=== PATIENT | female | born 1960 | race Caucasian/White ===

== ENCOUNTER 2020-07-29 17:46 | Inpatient (IN) ==
--- NOTE | 2020-07-29 18:36 | RAD ---
HISTORYPneumoniaSTUDYChest PA and lateral viewsCOMPARISONNoneFINDINGSNormal heart size. The lungs are clear of active-appearing disease. There is slightly prominent interstitial pattern in the left midlung without definite segmental or lobar consolidation. No pleural fluid or adenopathy seen.IMPRESSIONNo convincing evidence for acute or significant chronic abnormality. Follow-up suggested to evaluate possible developing infiltrate in the left midlung, see above.Electronically signed by: RADHA BALLARD (Jul 29, 2020 18:33:52)
[2020-07-29 18:59] LABS: BASOPHILS % (AUTO) 0.2 % (0.2-1.0); EOSINOPHILS % (AUTO) 0.1 % (0.9-2.9); HEMATOCRIT 42.7 % (36.0-47.0); HEMOGLOBIN 14.4 g/dL (12.0-16.0); LYMPHOCYTES # (AUTO) 1.5 X10^3/uL (1.3-2.9); LYMPHOCYTES % (AUTO) 15.4 % (21.0-51.0); MEAN CORPUSCULAR HEMOGLOBIN 27.8 pg (27.0-34.0); MEAN CORPUSCULAR HGB CONC 33.6 g/dL (33.0-35.0); MEAN CORPUSCULAR VOLUME 82.6 fL (80.0-100.0); MEAN PLATELET VOLUME 10.7 fL (7.4-11.0); MONOCYTES # (AUTO) 0.8 x10^3/uL (0.3-0.8); MONOCYTES % (AUTO) 7.7 % (0.0-13.0); NEUTROPHILS # (AUTO) 7.7 x10^3/uL (2.2-4.8); NEUTROPHILS % (AUTO) 76.6 % (42.0-75.0); PLATELET COUNT 276 X10^3/uL (150.0-450.0); RED BLOOD COUNT 5.17 X10^6/uL (3.5-5.4)
[2020-07-29] MEDS ORDERED: REMDESIVIR 200 MG in NS 250 ML IV 250 ML IV SCH (19:00)
[2020-07-29 19:03] LABS: ALANINE AMINOTRANSFERASE 23 Units/L (12-78); ALBUMIN 3.4 g/dL (3.4-5.0); ALKALINE PHOSPHATASE 112 Units/L (46-116); ASPARTATE AMINO TRANSFERASE 17 Units/L (15-37); BLOOD UREA NITROGEN 9 mg/dL (7-18); CALCIUM 9.2 mg/dL (8.5-10.1); CARBON DIOXIDE 32.7 mmol/L (21-32); CHLORIDE 99 mmol/L (98-107); CREATININE 1.06 mg/dL (0.55-1.02); SODIUM 140 mmol/L (136-145); TOTAL PROTEIN 7.9 g/dL (6.4-8.2); eGFR NON BLACK RACES 56 (>60)
[2020-07-29] MEDS ORDERED: NS 1/2 1000 ML IV 1,000 ML IV ONE (20:05)
[2020-07-29] MEDS ORDERED: REMDESIVIR IV ONE (20:38)
[2020-07-29] MEDS ORDERED: NS 250 ML IV 250 ML IV ONE (20:39)
[2020-07-29] MEDS ORDERED: PULMICORT NEB TX 0.5 MG NEB SCH (21:00)
[2020-07-29] MEDS: SOLU-Medrol 40 MG VIAL IVP SCH ×2 (21:08→21:09)
[2020-07-29] MEDS: ROBITUSSIN DM PO SCH ×2 (21:08)
[2020-07-29] MEDS: NS 1/2 1000 ML IV 1,000 ML IV SCH (21:08)
[2020-07-29] MEDS ORDERED: DUONEB 0.5 MG/3 MG (3 mL) NEB SCH (22:00)
[2020-07-29 22:28] LABS: ABG BASE EXCESS 5.1 mmol/L (-2.0-2.0); ABG HCO3 27.4 mmol/L (22-26)
[2020-07-29] MEDS: PULMICORT NEB TX 0.5 MG NEB SCH (22:29)
[2020-07-29] MEDS: DUONEB 0.5 MG/3 MG (3 mL) NEB SCH (22:29)
[2020-07-30] MEDS: LEVAQUIN PREMIX IV 750 MG 750 MG/150 ML BAG IV SCH (03:08)
[2020-07-30] MEDS: FORTAZ or TAZICEF VIAL INJ 1 G in NS 100 ML IV + SPIKE MINIBAG* 100 ML IV SCH ×3 (04:00→19:38)
[2020-07-30] MEDS: SOLU-Medrol 40 MG VIAL IVP SCH ×3 (05:08→21:39)
[2020-07-30 05:27] LABS: BASOPHILS % (AUTO) 0 % (0.2-1.0); HEMATOCRIT 40.6 % (36.0-47.0); HEMOGLOBIN 13.7 g/dL (12.0-16.0); LYMPHOCYTES # (AUTO) 0.6 X10^3/uL (1.3-2.9); LYMPHOCYTES % (AUTO) 6.5 % (21.0-51.0); MEAN CORPUSCULAR HEMOGLOBIN 27.9 pg (27.0-34.0); MEAN CORPUSCULAR HGB CONC 33.7 g/dL (33.0-35.0); MEAN CORPUSCULAR VOLUME 82.6 fL (80.0-100.0); MEAN PLATELET VOLUME 10.9 fL (7.4-11.0); MONOCYTES # (AUTO) 0.1 x10^3/uL (0.3-0.8); MONOCYTES % (AUTO) 1.4 % (0.0-13.0); NEUTROPHILS # (AUTO) 7.8 x10^3/uL (2.2-4.8); NEUTROPHILS % (AUTO) 92.1 % (42.0-75.0); PLATELET COUNT 255 X10^3/uL (150.0-450.0); RED BLOOD COUNT 4.92 X10^6/uL (3.5-5.4); WHITE BLOOD COUNT 8.5 X10^3/uL (3.6-10.0)
[2020-07-30 05:28] LABS: ALANINE AMINOTRANSFERASE 25 Units/L (12-78); ALBUMIN 2.9 g/dL (3.4-5.0); ALKALINE PHOSPHATASE 110 Units/L (46-116); ASPARTATE AMINO TRANSFERASE 21 Units/L (15-37); BLOOD UREA NITROGEN 9 mg/dL (7-18); CARBON DIOXIDE 25.8 mmol/L (21-32); CHLORIDE 101 mmol/L (98-107); COR NA(FOR HYPERGLY) 142 mmol/L (136-145); CREATININE 1.07 mg/dL (0.55-1.02); SODIUM 140 mmol/L (136-145); TOTAL PROTEIN 7.3 g/dL (6.4-8.2); eGFR NON BLACK RACES 56 (>60)
[2020-07-30 05:34] LABS: CALCIUM 8.6 mg/dL (8.5-10.1); COR CA(FOR HYPOALB) 9.5 mg/dL (8.5-10.1)
[2020-07-30 05:51] LABS: BAND NEUTROPHILS % 2 % (0-10); PLATELET MORPHOLOGY COMMENT NORMAL (NORMAL)
[2020-07-30 06:07] LABS: ERYTHROCYTE SEDIMENTATION RATE 20 MM/HOUR (0-20)
[2020-07-30] MEDS: DUONEB 0.5 MG/3 MG (3 mL) NEB SCH (06:30)
[2020-07-30] MEDS: PULMICORT NEB TX 0.5 MG NEB SCH ×2 (08:39→20:45)
[2020-07-30] MEDS: ROBITUSSIN DM PO SCH ×4 (09:04→20:29)
[2020-07-30] MEDS: REMDESIVIR 100 MG in NS 250 ML IV 250 ML IV SCH (10:53)
[2020-07-30] MEDS: NS 1/2 1000 ML IV 1,000 ML IV SCH (10:54)
[2020-07-30] MEDS ORDERED: XOPENEX 1.25 MG/3 ML NEBULE NEB ONE (12:36)
[2020-07-30] MEDS: XOPENEX 1.25 MG/3 ML NEBULE NEB SCH ×2 (13:05→20:45)
[2020-07-30] MEDS: TYLENOL 325 MG TAB PO PRN (15:41)
[2020-07-30 19:39] VITALS: BMI 37.4
[2020-07-30] MEDS ORDERED: NS 1/2 1000 ML IV 1,000 ML IV ONE (21:49)
[2020-07-31] MEDS: LEVAQUIN PREMIX IV 750 MG 750 MG/150 ML BAG IV SCH ×2 (01:12→09:45)
[2020-07-31] MEDS: TYLENOL 325 MG TAB PO PRN (02:54)
[2020-07-31] MEDS: FORTAZ or TAZICEF VIAL INJ 1 G in NS 100 ML IV + SPIKE MINIBAG* 100 ML IV SCH ×3 (03:19→20:00)
[2020-07-31] MEDS: NS 1/2 1000 ML IV 1,000 ML IV SCH ×3 (03:57→12:21)
[2020-07-31] MEDS: SOLU-Medrol 40 MG VIAL IVP SCH ×3 (05:07→21:27)
[2020-07-31 05:18] LABS: ABG ALLEN TEST POS; ABG BASE EXCESS 2.5 mmol/L (-2.0-2.0); ABG HCO3 26.3 mmol/L (22-26)
[2020-07-31 05:38] LABS: BASOPHILS % (AUTO) 0 % (0.2-1.0); HEMATOCRIT 39.2 % (36.0-47.0); HEMOGLOBIN 12.9 g/dL (12.0-16.0); LYMPHOCYTES # (AUTO) 0.9 X10^3/uL (1.3-2.9); LYMPHOCYTES % (AUTO) 6.4 % (21.0-51.0); MEAN CORPUSCULAR HEMOGLOBIN 27.2 pg (27.0-34.0); MEAN CORPUSCULAR HGB CONC 32.9 g/dL (33.0-35.0); MEAN CORPUSCULAR VOLUME 82.7 fL (80.0-100.0); MEAN PLATELET VOLUME 10.7 fL (7.4-11.0); MONOCYTES # (AUTO) 0.8 x10^3/uL (0.3-0.8); MONOCYTES % (AUTO) 5.3 % (0.0-13.0); NEUTROPHILS # (AUTO) 12.6 x10^3/uL (2.2-4.8); NEUTROPHILS % (AUTO) 88.3 % (42.0-75.0); PLATELET COUNT 294 X10^3/uL (150.0-450.0); RED BLOOD COUNT 4.74 X10^6/uL (3.5-5.4); RED CELL DISTRIBUTION WIDTH 14.2 % (11.6-16.5); WHITE BLOOD COUNT 14.2 X10^3/uL (3.6-10.0)
[2020-07-31 05:38] LABS: FRACTIONATED INSPIRED OXYGEN 21
[2020-07-31 05:46] LABS: ALANINE AMINOTRANSFERASE 27 Units/L (12-78); ALBUMIN 2.7 g/dL (3.4-5.0); ALKALINE PHOSPHATASE 100 Units/L (46-116); ASPARTATE AMINO TRANSFERASE 25 Units/L (15-37); BLOOD UREA NITROGEN 13 mg/dL (7-18); CALCIUM 8.4 mg/dL (8.5-10.1); CARBON DIOXIDE 26.8 mmol/L (21-32); CHLORIDE 104 mmol/L (98-107); COR CA(FOR HYPOALB) 9.4 mg/dL (8.5-10.1); COR NA(FOR HYPERGLY) 143 mmol/L (136-145); CREATININE 1.04 mg/dL (0.55-1.02); SODIUM 141 mmol/L (136-145); TOTAL PROTEIN 6.6 g/dL (6.4-8.2); eGFR NON BLACK RACES 58 (>60)
[2020-07-31] MEDS ORDERED: Atrovent NEB TX 0.02% ONE (05:48)
[2020-07-31] MEDS: Atrovent NEB TX 0.02% NEB SCH ×3 (05:52→21:29)
[2020-07-31] MEDS ORDERED: K-DUR TAB 20 MEQ PO ONE (06:15)
--- NOTE | 2020-07-31 06:15 | RAD ---
HISTORYShortness of breathSTUDYChest AP [id number]/07/2020FINDINGSThe heart is within normal limits in size. The apollo are normal. The lungs are well inflated and free of acute infiltrates. No pleural effusions are identified. Bony thorax is unremarkable.IMPRESSIONNo significant abnormality identifiedElectronically signed by: LOLITA IBRAHIM (Jul 31, 2020 06:13:31)
[2020-07-31] MEDS: K-DUR TAB 20 MEQ PO PRN (06:21)
[2020-07-31 06:35] LABS: ERYTHROCYTE SEDIMENTATION RATE 18 MM/HOUR (0-20)
[2020-07-31] MEDS: PULMICORT NEB TX 0.5 MG NEB SCH ×2 (08:20→21:29)
[2020-07-31] MEDS: LOVENOX INJ 30 MG SYR SC SCH ×2 (09:46→20:56)
[2020-07-31] MEDS: REMDESIVIR 100 MG in NS 250 ML IV 250 ML IV SCH (09:47)
[2020-07-31] MEDS: ROBITUSSIN DM PO SCH ×4 (09:48→20:42)
--- NOTE | 2020-07-31 10:47 | DR.H&P ---
H&P - History & Physical for Day of: H&P Date: 07/29/20 - Chief Complaint Chief Complaint: COUGH, SOB, HEADACHE, BODY ACHES, FEVER, COVID POSITIVE - History of Present Illness History of Present Illness: IS A 60 YEAR OLD PATIENT OF OURS WHO PRESENTED TO THE HOSPITAL A DIRECT ADMISSION DUE TO COMPLAINTS OF PERSISTENT COUGH, SHORTNESS OF BREATH, HEADACHE, BODY ACHES, AND FEVER. SYMPTOMS STARTED ON 07/24/20. SHE TESTED POSITIVE FOR COVID-19 AND WAS STARTED ON THE Z-PACK, MEDROL DOSEPACK, AND PLAQUENIL REGIMEN. SHE DENIES IMPROVEMENT IN SYMPTOMS DESPITE COMPLIANCE WITH MEDICATIONS. SHE WAS ADMITTED FOR FURTHER EVALUATION AND TR EAMENT OF BRONCHOPNEUMONIA DUE TO COVID-19. ON ARRIVAL TO THE HOSPITAL, VITALS WERE 99.5-76-22-96%RA-164/87. LABS WERE OBTAINED. ABNORMAL LAB VALUES INCLUDE THE FOLLOWING: CARBON DIOXIDE 32.7, CREATININE 1.06, GFR 56, FERRITIN 346, CRP 89.40. ABG REVEALED: PH 7.540, PC02 32.0, P02 66.0, HC03 27.4, 02 ST 95, BASE EXCESS 5.1, FI02 21.0. BLOOD AND SPUTUM CULTURES WERE SET UP. A CHEST XRAY WAS OBTAINED AND REVEALED: Normal heart size. The lungs are clear of active- appearing disease. There is slightly prominent interstitial pattern in the left midlung without definite segmental or lobar consolidation. No pleural fluid or adenopathy seen. SHE WAS STARTED ON 1/2NS AT 75 ML/HR, REMDESIVIR 200MG IV X 1 DOSE THEN 100 MG IV DAILY, LEVAQUIN 750MG IV DAILY, FORTAZ 1G IV Q8H, SOLU- MEDROL 80MG IV Q8H, ATROVENT NEB TX TID, PULMICORT NEBS BID, TUSSIONEX 5ML PO Q12H PRN, LOVENOX 30MG SC BID, ROBITUSSIN 10ML PO QID. OTHERWISE, WE PLAN TO FOLLOW UP WITH AM LABS AND CHEST XRAY AND CONTINUE TO MONITOR. - Past Medical History Past Medical History: Hypertension - Past Surgical History Surgical History: Appendectomy, Hysterectomy, Ortho Surgery, Tonsillectomy - Family History Family Medical History: Diabetes Mellitus, Cancer, Coronary Artery Disease - Social History Does patient currently use any type of tobacco product: No Have you used tobacco products in the last 12 months: No Type of Tobacco Use: None Does any household member use tobacco: No Alcohol Use: None Drug Use: None - Medications Home Medications: oxycodone [From Percocet] Adverse Reaction (Intermediate, Verified 07/29/20 20:31) CONTINUE taking the following medications estradiol 1 mg PO DAILY 07/29/20 [History] triamterene-hydrochlorothiazid 1 cap PO DAILY 07/29/20 [History] - Review of Systems Constitutional: Fever, Chills, Weakness Eyes: No Symptoms Reported ENT: Nose Congestion Respiratory: See HPI, Cough, Shortness of Breath, Wheezing Cardiovascular: No Symptoms Reported Gastrointestinal: No Symptoms Reported Genitourinary: No Symptoms Reported Musculoskeletal: No Symptoms Reported Skin: No Symptoms Reported Neurological: Weakness - Physical Exam Vital Signs: Temperature 97.8 F Pulse Rate 81 Respiratory Rate 20 Blood Pressure 142/66 O2 Sat by Pulse Oximetry 95 Oriented: Normal Eyes: Normal Ear: Normal Nose: Normal Throat: Normal Respiratory: Wheezes Throughout Cardiovascular: Normal : Normal Auscultation: Bowel Sounds: Normal Palpation: Normal Tenderness: Normal Skin: Normal Musculoskeletal: Normal Psychiatric: Normal Mood Description: Calm Affect: Normal Speech Pattern: Clear - Assessment/Plan (1) Bronchopneumonia Status: Acute Plan: ADMIT, 1/2NS AT 75 ML/HR, REMDESIVIR 200MG IV X 1 DOSE THEN 100 MG IV DAILY, LEVAQUIN 750MG IV DAILY, FORTAZ 1G IV Q8H, SOLU-MEDROL 80MG IV Q8H, ATROVENT NEB TX TID, PULMICORT NEBS BID, TUSSIONEX 5ML PO Q12H PRN, LOVENOX 30MG SC BID, ROBITUSSIN 10ML PO QID. (2) COVID-19 Status: Acute - Allergies Allergies/Adverse Reactions: Allergies Allergy/AdvReac Type Severity Reaction Status Date / Time oxycodone [From Percocet] AdvReac Intermediate Verified 07/29/20 20:31
[2020-07-31] MEDS: TUSSIONEX PENNKINETIC SUSP PO PRN (20:43)
[2020-07-31] MEDS ORDERED: SALINE 0.9% 3 ML NEB TX ONE (20:45)
--- NOTE | 2020-07-31 21:49 | PCM.PROG ---
Progress Note - Progress Note for Day of Date of Exam: 07/31/20 - Subjective Subjective: IS BEING TREATED FOR BRONCHOPNEUMONIA DUE TO COVID-19. TODAY. SHE IS ALERT AND ORIENTED, LYING IN BED ON MORNING ROUNDS. SHE CONTINUES WITH COMPLAINTS OF COUGH, SHORTNESS OF BREATH, AND WEAKNESS TODAY. ON EXAMINATION, HEART IS REGULAR IN RATE AND RHYTHM. BILATERAL LUNGS ARE NOTED WITH SCATTERED WHEEZING THROUGHOUT. ABDOMEN IS ROUND, SOFT, AND NON-TENDER WITH NORMAL BOWEL SOUNDS NOTED IN ALL QUADRANTS. HER VITALS THIS MORNING ARE: 97.8-80-20-95%-142/66. LABS WERE OBTAINED. ABNORMAL LAB VALUES INCLUDE THE FOLLOWING: WBC 14.2, POTASSIUM 3.2, CREATININE 1.04, GLUCOSE 173, CALCIUM 8.4, FERRITIN 414, TOTAL BILI 0.10, CRP 71.20, ALBUMIN 2.7. BLOOD AND SPUTUM CULTURES ARE PENDING. A CHEST XRAY WAS OBTAINED AND REVEALED: heart is within normal limits in size. The apollo are normal. The lungs are well inflated and free of acute infiltrates. No pleural effusions are identified. Bony thorax is unremarkable. ABG WAS OBTAINED AND REVEALED: 7.460, PC02 37.0, P02 72.0, HC03 26.3, 02 SAT 95, BASE EXCESS 2.5, FI02 21.0. SHE IS CURRENTLY RECEIVING 1/2NS AT 75 ML/HR, REMDESIVIR 200MG IV X 1 DOSE THEN 100 MG IV DAILY, LEVAQUIN 750MG IV DAILY, FORTAZ 1G IV Q8H, SOLU-MEDROL 80MG IV Q8H, ATROVENT NEB TX TID, PULMICORT NEBS BID, TUSSIONEX 5ML PO Q12H PRN, LOVENOX 30MG SC BID, ROBITUSSIN 10ML PO QID. WE WILL CONTINUE WITH CURRENT PLAN OF CARE TODAY. OTHERWISE, WE WILL FOLLOW UP WITH AM LABS AND CHEST XRAY AND CONTINUE TO MONITOR. - Past Medical Family Social History Past Med/Fam/Surg Hx: No changes since H&P Allergies: Allergies oxycodone [From Percocet] Adverse Reaction (Intermediate, Verified 07/29/20 20:31) PT STATES THAT PERCOCET CAUSES HER TO VOMIT AND HAVE A HEADACHE - Review of Systems ROS: No change since H&P - Vital Signs and I&O's Vital Signs: Temperature 98.0 F Pulse Rate 63 Respiratory Rate 20 Blood Pressure 148/73 O2 Sat by Pulse Oximetry 95 Intake and Output: Intake & Output 07/29/20 07/30/20 07/31/20 08/01/20 11:59 11:59 11:59 11:59 Intake Total 2175 / 2175 5390 / 5313 1970 Balance 2175 / 2175 5390 / 5390 1970 - Physical Exam Oriented: Normal Eyes: Normal Ear: Normal Nose: Normal Throat: Normal Respiratory: Generalized, Diminished, Wheezes Cardiovascular: Normal : Normal Auscultation: Bowel Sounds: Normal Tenderness: Normal Skin: Normal Musculoskeletal: Normal Psychiatric: Normal Mood Description: Calm Affect: Normal Speech Pattern: Clear, Appropriate - Laboratory and Diagnostics Result Diagrams: 07/31/20 04:46 07/31/20 08:21 Labs: 07/29/20 18:33 Blood Blood Culture - Preliminary 07/29/20 18:27 Blood Blood Culture - Preliminary 07/29/20 22:38 Sputum - Expectorated Sputum Sputum Culture - Preliminary 07/29/20 22:38 Sputum - Expectorated Sputum - Final Laboratory WBC 14.2 X10^3/uL (3.6-10.0) H 07/31/20 04:46 RBC 4.74 X10^6/uL (3.5-5.4) 07/31/20 04:46 Hgb 12.9 g/dL (12.0-16.0) 07/31/20 04:46 Hct 39.2 % (36.0-47.0) 07/31/20 04:46 MCV 82.7 fL (80.0-100.0) 07/31/20 04:46 MCH 27.2 pg (27.0-34.0) 07/31/20 04:46 MCHC 32.9 g/dL (33.0-35.0) L 07/31/20 04:46 RDW 14.2 % (11.6-16.5) 07/31/20 04:46 Plt Count 294 X10^3/uL (150.0-450.0) 07/31/20 04:46 Plt Count Comment Adequate (ADEQUATE) 07/30/20 04:48 MPV 10.7 fL (7.4-11.0) 07/31/20 04:46 Neut % (Auto) 88.3 % (42.0-75.0) H 07/31/20 04:46 Lymph % (Auto) 6.4 % (21.0-51.0) L 07/31/20 04:46 Rooks % (Auto) 5.3 % (0.0-13.0) 07/31/20 04:46 Eos % (Auto) 0.0 % (0.9-2.9) L 07/31/20 04:46 Baso % (Auto) 0 % (0.2-1.0) L 07/31/20 04:46 Neut # (Auto) 12.6 x10^3/uL (2.2-4.8) H 07/31/20 04:46 Lymph # (Auto) 0.9 X10^3/uL (1.3-2.9) L 07/31/20 04:46 Rooks # (Auto) 0.8 x10^3/uL (0.3-0.8) 07/31/20 04:46 Eos # (Auto) 0.0 x10^3/uL (0.0-0.2) 07/31/20 04:46 Baso # (Auto) 0.0 X10^3/uL (0.0-0.1) 07/31/20 04:46 Absolute Nucleated RBC 0.0 /100WBC 07/31/20 04:46 Total Counted 100 07/30/20 04:48 Neutrophils % (Manual) 94 % (39-76) H 07/30/20 04:48 Band Neutrophils % 2 % (0-10) 07/30/20 04:48 Lymphocytes % (Manual) 3 % (13-43) L 07/30/20 04:48 Monocytes % (Manual) 1 % (4-9) L 07/30/20 04:48 Plt Morphology Comment Normal (NORMAL) 07/30/20 04:48 RBC Morphology Normal (NORMAL) 07/30/20 04:48 ESR 18 MM/HOUR (0-20) 07/31/20 04:46 Sample Site Lr 07/31/20 05:10 ABG pH 7.460 (7.35-7.45) H 07/31/20 05:10 ABG pCO2 37.0 mmHg (35.0-45.0) 07/31/20 05:10 ABG pO2 72.0 mmHg (80.0-100.0) L 07/31/20 05:10 ABG HCO3 26.3 mmol/L (22-26) H 07/31/20 05:10 ABG O2 Saturation 95.0 % (90-100) 07/31/20 05:10 ABG Base Excess 2.5 mmol/L (-2.0-2.0) H 07/31/20 05:10 Lm Test Pos 07/31/20 05:10 A-a Gradient 81.0 mmHg 07/31/20 05:10 FiO2 21 07/31/20 05:10 Blood Gas Comments Seferino well ae 07/31/20 05:10 Sodium 141 mmol/L (136-145) 07/31/20 04:46 Corrected Sodium 143 mmol/L (136-145) 07/31/20 04:46 Potassium 3.6 mmol/L (3.5-5.1) 07/31/20 08:21 Chloride 104 mmol/L (98-107) 07/31/20 04:46 Carbon Dioxide 26.8 mmol/L (21-32) 07/31/20 04:46 BUN 13 mg/dL (7-18) 07/31/20 04:46 Creatinine 1.04 mg/dL (0.55-1.02) H 07/31/20 04:46 Est GFR (MDRD) Af Amer > 60 (>60) 07/31/20 04:46 Est GFR (MDRD) Non-Af 58 (>60) L 07/31/20 04:46 Glucose 173 mg/dL (65-99) H 07/31/20 04:46 Calcium 8.4 mg/dL (8.5-10.1) L 07/31/20 04:46 Corrected Calcium 9.4 mg/dL (8.5-10.1) 07/31/20 04:46 Magnesium 2.0 mg/dL (1.7-2.9) 07/31/20 04:46 Ferritin 414 ng/mL (8-252) H 07/31/20 04:46 Total Bilirubin 0.10 mg/dL (0.2-1.0) L 07/31/20 04:46 AST 25 Units/L (15-37) 07/31/20 04:46 ALT 27 Units/L (12-78) 07/31/20 04:46 Alkaline Phosphatase 100 Units/L (46-116) 07/31/20 04:46 C-Reactive Protein 71.20 mg/L (0-3.0) H 07/31/20 04:46 Total Protein 6.6 g/dL (6.4-8.2) 07/31/20 04:46 Albumin 2.7 g/dL (3.4-5.0) L 07/31/20 04:46 Globulin 3.9 g/dL (2.5-4.5) 07/31/20 04:46 Albumin/Globulin Ratio 0.7 Ratio (1.1-2.1) L 07/31/20 04:46 SARS-CoV-2 (PCR) Positive (NEGATIVE) A 07/29/20 19:30 - Plan (1) Bronchopneumonia Status: Acute Plan: 1/2NS AT 75 ML/HR, REMDESIVIR 200MG IV X 1 DOSE THEN 100 MG IV DAILY, LEVAQUIN 750MG IV DAILY, FORTAZ 1G IV Q8H, SOLU-MEDROL 80MG IV Q8H, ATROVENT NEB TX TID, PULMICORT NEBS BID, TUSSIONEX 5ML PO Q12H PRN, LOVENOX 30MG SC BID, ROBITUSSIN 10ML PO QID. (2) COVID-19 Status: Acute
[2020-07-31] MEDS ORDERED: TESSALON PERLES PO ONE (22:26)
[2020-07-31] MEDS: TESSALON PERLES PO PRN (22:36)
[2020-08-01] MEDS: FORTAZ or TAZICEF VIAL INJ 1 G in NS 100 ML IV + SPIKE MINIBAG* 100 ML IV SCH ×3 (02:19→18:02)
[2020-08-01] MEDS ORDERED: NS 1/2 1000 ML IV 1,000 ML IV ONE (04:49)
[2020-08-01] MEDS: SOLU-Medrol 40 MG VIAL IVP SCH ×3 (05:30→21:38)
[2020-08-01 05:42] LABS: ALANINE AMINOTRANSFERASE 43 Units/L (12-78); ALBUMIN 2.5 g/dL (3.4-5.0); ALKALINE PHOSPHATASE 87 Units/L (46-116); ASPARTATE AMINO TRANSFERASE 39 Units/L (15-37); BLOOD UREA NITROGEN 17 mg/dL (7-18); CALCIUM 8.1 mg/dL (8.5-10.1); CARBON DIOXIDE 28.1 mmol/L (21-32); CHLORIDE 104 mmol/L (98-107); COR CA(FOR HYPOALB) 9.3 mg/dL (8.5-10.1); COR NA(FOR HYPERGLY) 141 mmol/L (136-145); CREATININE 0.98 mg/dL (0.55-1.02); SODIUM 140 mmol/L (136-145); TOTAL PROTEIN 6.1 g/dL (6.4-8.2); eGFR NON BLACK RACES > 60 (>60)
[2020-08-01 05:59] LABS: BASOPHILS % (AUTO) 0.1 % (0.2-1.0); HEMATOCRIT 38.4 % (36.0-47.0); HEMOGLOBIN 12.5 g/dL (12.0-16.0); LYMPHOCYTES % (AUTO) 5.6 % (21.0-51.0); MEAN CORPUSCULAR HGB CONC 32.7 g/dL (33.0-35.0); MEAN CORPUSCULAR VOLUME 82.6 fL (80.0-100.0); MEAN PLATELET VOLUME 10.4 fL (7.4-11.0); MONOCYTES # (AUTO) 0.7 x10^3/uL (0.3-0.8); MONOCYTES % (AUTO) 3.9 % (0.0-13.0); NEUTROPHILS # (AUTO) 15.5 x10^3/uL (2.2-4.8); NEUTROPHILS % (AUTO) 90.4 % (42.0-75.0); PLATELET COUNT 310 X10^3/uL (150.0-450.0); RED BLOOD COUNT 4.64 X10^6/uL (3.5-5.4); RED CELL DISTRIBUTION WIDTH 14.1 % (11.6-16.5); WHITE BLOOD COUNT 17.1 X10^3/uL (3.6-10.0)
[2020-08-01] MEDS: Atrovent NEB TX 0.02% NEB SCH ×3 (06:14→21:41)
--- NOTE | 2020-08-01 06:14 | RAD ---
HISTORYSOBSTUDYCHEST, 1 [id number]/09/2020TECHNIQUEAP view of the chestFINDINGSThe cardiac and mediastinal contours are within normal limits. The lungs are clear without focal consolidation or segmental collapse. No pleural effusion or pneumothorax.IMPRESSIONNo acute pulmonary process.Electronically signed by: Parmjit Whitaker (Aug 01, 2020 06:13:12)
[2020-08-01] MEDS: NS 1/2 1000 ML IV 1,000 ML IV SCH ×2 (06:26→17:57)
[2020-08-01 06:49] LABS: ERYTHROCYTE SEDIMENTATION RATE 10 MM/HOUR (0-20)
[2020-08-01 06:50] LABS: PLATELET MORPHOLOGY COMMENT NORMAL (NORMAL)
[2020-08-01] MEDS: LOVENOX INJ 30 MG SYR SC SCH ×2 (09:02→21:35)
[2020-08-01] MEDS: REMDESIVIR 100 MG in NS 250 ML IV 250 ML IV SCH (09:02)
[2020-08-01] MEDS: ROBITUSSIN DM PO SCH ×5 (09:02→21:49)
[2020-08-01] MEDS: LEVAQUIN PREMIX IV 750 MG 750 MG/150 ML BAG IV SCH (09:02)
[2020-08-01] MEDS: PULMICORT NEB TX 0.5 MG NEB SCH ×2 (09:30→21:41)
--- NOTE | 2020-08-01 13:28 | PCM.PROG ---
Progress Note - Progress Note for Day of Date of Exam: 08/01/20 - Subjective Subjective: IS BEING TREATED FOR BRONCHOPNEUMONIA DUE TO COVID-19. TODAY, SHE IS ALERT AND ORIENTED, LYING IN BED ON MORNING ROUNDS. SHE CONTINUES WITH COMPLAINTS OF COUGH, SHORTNESS OF BREATH, AND WEAKNESS TODAY. SHE DOES REPORT SLIGHT IMPROVEMENT IN SYMPTOMS SINCE ONE DAY PRIOR. ON EXAMINATION, HEART IS REGULAR IN RATE AND RHYTHM. BILATERAL LUNGS ARE NOTED WITH SCATTERED WHEEZING THROUGHOUT. ABDOMEN IS ROUND, SOFT, AND NON-TENDER WITH NORMAL BOWEL SOUNDS NOTED IN ALL QUADRANTS. HER VITALS THIS MORNING ARE: 98.3-78-18-95%RA-136/73. LABS WERE OBTAINED. ABNORMAL LAB VALUES INCLUDE THE FOLLOWING: WBC 17.1, GLUCOSE 151, CALCIUM 8.1, FERRITIN 417, AST 39, CRP 31.70, TOTAL PROTEIN 6.1, ALBUMIN 2.5. BLOOD AND SPUTUM CULTURES ARE PENDING. A CHEST XRAY WAS OBTAINED AND REVEALED: The cardiac and mediastinal contours are within normal limits. The lungs are clear without focal consolidation or segmental collapse. No pleural effusion or pneumothorax. SHE IS CURRENTLY RECEIVING 1/2NS AT 75 ML/HR, REMDESIVIR 100 MG IV DAILY, LEVAQUIN 750MG IV DAILY, FORTAZ 1G IV Q8H, SOLU- MEDROL 80MG IV Q8H, ATROVENT NEB TX TID, PULMICORT NEBS BID, TUSSIONEX 5ML PO Q12H PRN, LOVENOX 30MG SC BID, ROBITUSSIN 10ML PO QID. WE WILL CONTINUE WITH CURRENT PLAN OF CARE TODAY. OTHERWISE, WE WILL FOLLOW UP WITH AM LABS AND CHEST XRAY AND CONTINUE TO MONITOR. - Past Medical Family Social History Past Med/Fam/Surg Hx: No changes since H&P Allergies: Allergies oxycodone [From Percocet] Adverse Reaction (Intermediate, Verified 07/29/20 20:31) PT STATES THAT PERCOCET CAUSES HER TO VOMIT AND HAVE A HEADACHE - Review of Systems ROS: No change since H&P - Vital Signs and I&O's Vital Signs: Temperature 98.3 F Pulse Rate 71 Respiratory Rate 18 Blood Pressure 136/73 O2 Sat by Pulse Oximetry 95 Intake and Output: Intake & Output 07/30/20 07/31/20 08/01/20 08/02/20 11:59 11:59 11:59 11:59 Intake Total 2175 / 2174 5390 / 5390 4121 / 4121 Balance 163 / 2174 5390 / 5390 4121 / 4121 - Physical Exam Oriented: Normal Eyes: Normal Ear: Normal Nose: Normal Throat: Normal Respiratory: Generalized, Diminished, Wheezes Cardiovascular: Normal : Normal Auscultation: Bowel Sounds: Normal Tenderness: Normal Skin: Normal Musculoskeletal: Normal Psychiatric: Normal Mood Description: Calm Affect: Normal Speech Pattern: Clear, Appropriate - Laboratory and Diagnostics Result Diagrams: 08/01/20 05:07 08/01/20 05:07 Labs: 07/29/20 22:38 Sputum - Expectorated Sputum Sputum Culture - Final 07/29/20 22:38 Sputum - Expectorated Sputum - Final 07/29/20 18:33 Blood Blood Culture - Preliminary 07/29/20 18:27 Blood Blood Culture - Preliminary Laboratory WBC 17.1 X10^3/uL (3.6-10.0) H 08/01/20 05:07 RBC 4.64 X10^6/uL (3.5-5.4) 08/01/20 05:07 Hgb 12.5 g/dL (12.0-16.0) 08/01/20 05:07 Hct 38.4 % (36.0-47.0) 08/01/20 05:07 MCV 82.6 fL (80.0-100.0) 08/01/20 05:07 MCH 27.0 pg (27.0-34.0) 08/01/20 05:07 MCHC 32.7 g/dL (33.0-35.0) L 08/01/20 05:07 RDW 14.1 % (11.6-16.5) 08/01/20 05:07 Plt Count 310 X10^3/uL (150.0-450.0) 08/01/20 05:07 Plt Count Comment Adequate (ADEQUATE) 08/01/20 05:07 MPV 10.4 fL (7.4-11.0) 08/01/20 05:07 Neut % (Auto) 90.4 % (42.0-75.0) H 08/01/20 05:07 Lymph % (Auto) 5.6 % (21.0-51.0) L 08/01/20 05:07 Norton % (Auto) 3.9 % (0.0-13.0) 08/01/20 05:07 Eos % (Auto) 0.0 % (0.9-2.9) L 08/01/20 05:07 Baso % (Auto) 0.1 % (0.2-1.0) L 08/01/20 05:07 Neut # (Auto) 15.5 x10^3/uL (2.2-4.8) H 08/01/20 05:07 Lymph # (Auto) 1.0 X10^3/uL (1.3-2.9) L 08/01/20 05:07 Norton # (Auto) 0.7 x10^3/uL (0.3-0.8) 08/01/20 05:07 Eos # (Auto) 0.0 x10^3/uL (0.0-0.2) 08/01/20 05:07 Baso # (Auto) 0.0 X10^3/uL (0.0-0.1) 08/01/20 05:07 Absolute Nucleated RBC 0.0 /100WBC 08/01/20 05:07 Total Counted 100 08/01/20 05:07 Neutrophils % (Manual) 88 % (39-76) H 08/01/20 05:07 Band Neutrophils % 2 % (0-10) 07/30/20 04:48 Lymphocytes % (Manual) 10 % (13-43) L 08/01/20 05:07 Monocytes % (Manual) 2 % (4-9) L 08/01/20 05:07 Plt Morphology Comment Normal (NORMAL) 08/01/20 05:07 RBC Morphology Normal (NORMAL) 08/01/20 05:07 ESR 10 MM/HOUR (0-20) 08/01/20 05:07 Sample Site Lr 07/31/20 05:10 ABG pH 7.460 (7.35-7.45) H 07/31/20 05:10 ABG pCO2 37.0 mmHg (35.0-45.0) 07/31/20 05:10 ABG pO2 72.0 mmHg (80.0-100.0) L 07/31/20 05:10 ABG HCO3 26.3 mmol/L (22-26) H 07/31/20 05:10 ABG O2 Saturation 95.0 % (90-100) 07/31/20 05:10 ABG Base Excess 2.5 mmol/L (-2.0-2.0) H 07/31/20 05:10 Lm Test Pos 07/31/20 05:10 A-a Gradient 81.0 mmHg 07/31/20 05:10 FiO2 21 07/31/20 05:10 Blood Gas Comments Seferino well ae 07/31/20 05:10 Sodium 140 mmol/L (136-145) 08/01/20 05:07 Corrected Sodium 141 mmol/L (136-145) 08/01/20 05:07 Potassium 3.9 mmol/L (3.5-5.1) 08/01/20 05:07 Chloride 104 mmol/L (98-107) 08/01/20 05:07 Carbon Dioxide 28.1 mmol/L (21-32) 08/01/20 05:07 BUN 17 mg/dL (7-18) 08/01/20 05:07 Creatinine 0.98 mg/dL (0.55-1.02) 08/01/20 05:07 Est GFR (MDRD) Af Amer > 60 (>60) 08/01/20 05:07 Est GFR (MDRD) Non-Af > 60 (>60) 08/01/20 05:07 Glucose 151 mg/dL (65-99) H 08/01/20 05:07 Calcium 8.1 mg/dL (8.5-10.1) L 08/01/20 05:07 Corrected Calcium 9.3 mg/dL (8.5-10.1) 08/01/20 05:07 Magnesium 2.0 mg/dL (1.7-2.9) 07/31/20 04:46 Ferritin 417 ng/mL (8-252) H 08/01/20 05:07 Total Bilirubin 0.20 mg/dL (0.2-1.0) 08/01/20 05:07 AST 39 Units/L (15-37) H 08/01/20 05:07 ALT 43 Units/L (12-78) 08/01/20 05:07 Alkaline Phosphatase 87 Units/L (46-116) 08/01/20 05:07 C-Reactive Protein 31.70 mg/L (0-3.0) H 08/01/20 05:07 Total Protein 6.1 g/dL (6.4-8.2) L 08/01/20 05:07 Albumin 2.5 g/dL (3.4-5.0) L 08/01/20 05:07 Globulin 3.6 g/dL (2.5-4.5) 08/01/20 05:07 Albumin/Globulin Ratio 0.7 Ratio (1.1-2.1) L 08/01/20 05:07 SARS-CoV-2 (PCR) Positive (NEGATIVE) A 07/29/20 19:30 - Plan (1) Bronchopneumonia Status: Acute Plan: 1/2NS AT 75 ML/HR, REMDESIVIR 100 MG IV DAILY, LEVAQUIN 750MG IV DAILY, FORTAZ 1G IV Q8H, SOLU-MEDROL 80MG IV Q8H, ATROVENT NEB TX TID, PULMICORT NEBS BID, TUSSIONEX 5ML PO Q12H PRN, LOVENOX 30MG SC BID, ROBITUSSIN 10ML PO QID. (2) COVID-19 Status: Acute
[2020-08-01] MEDS: TUSSIONEX PENNKINETIC SUSP PO PRN (21:40)
[2020-08-01] MEDS: TESSALON PERLES PO PRN (21:40)
[2020-08-02] MEDS ORDERED: NS 1/2 1000 ML IV 1,000 ML IV ONE (02:37)
[2020-08-02] MEDS: FORTAZ or TAZICEF VIAL INJ 1 G in NS 100 ML IV + SPIKE MINIBAG* 100 ML IV SCH ×2 (03:28→12:15)
[2020-08-02 04:14] VITALS: BP 154/72
[2020-08-02 05:30] LABS: ABG ALLEN TEST POS; ABG BASE EXCESS 3.7 mmol/L (-2.0-2.0); ABG HCO3 27.7 mmol/L (22-26)
[2020-08-02] MEDS: SOLU-Medrol 40 MG VIAL IVP SCH (05:32)
[2020-08-02 05:35] LABS: BASOPHILS % (AUTO) 0.1 % (0.2-1.0); HEMATOCRIT 37.4 % (36.0-47.0); HEMOGLOBIN 12.4 g/dL (12.0-16.0); MEAN CORPUSCULAR HEMOGLOBIN 27.4 pg (27.0-34.0); MEAN CORPUSCULAR HGB CONC 33.2 g/dL (33.0-35.0); MEAN CORPUSCULAR VOLUME 82.5 fL (80.0-100.0); MEAN PLATELET VOLUME 10.6 fL (7.4-11.0); MONOCYTES # (AUTO) 0.3 x10^3/uL (0.3-0.8); MONOCYTES % (AUTO) 3.1 % (0.0-13.0); NEUTROPHILS # (AUTO) 8.7 x10^3/uL (2.2-4.8); NEUTROPHILS % (AUTO) 86.8 % (42.0-75.0); PLATELET COUNT 283 X10^3/uL (150.0-450.0); RED BLOOD COUNT 4.54 X10^6/uL (3.5-5.4)
[2020-08-02 05:48] LABS: ALANINE AMINOTRANSFERASE 39 Units/L (12-78); ALBUMIN 2.4 g/dL (3.4-5.0); ALKALINE PHOSPHATASE 83 Units/L (46-116); ASPARTATE AMINO TRANSFERASE 19 Units/L (15-37); BLOOD UREA NITROGEN 19 mg/dL (7-18); CALCIUM 8.1 mg/dL (8.5-10.1); CARBON DIOXIDE 27.3 mmol/L (21-32); CHLORIDE 106 mmol/L (98-107); COR CA(FOR HYPOALB) 9.4 mg/dL (8.5-10.1); COR NA(FOR HYPERGLY) 143 mmol/L (136-145); CREATININE 0.93 mg/dL (0.55-1.02); SODIUM 141 mmol/L (136-145); TOTAL PROTEIN 5.7 g/dL (6.4-8.2); eGFR NON BLACK RACES > 60 (>60)
[2020-08-02] MEDS: Atrovent NEB TX 0.02% NEB SCH (05:55)
--- NOTE | 2020-08-02 05:59 | RAD ---
HISTORYSOBSTUDYCHEST, 1 [id number] trachea is midline. The cardiac silhouette is unremarkable . The lungs are clear without focal infiltrate or effusion. The bony thorax is unremarkable.IMPRESSIONNo acute cardiopulmonary disease.Electronically signed by: Adriana Winston (Aug 02, 2020 05:57:38)
[2020-08-02 06:12] LABS: ERYTHROCYTE SEDIMENTATION RATE 9 MM/HOUR (0-20)
[2020-08-02] MEDS: K-DUR TAB 20 MEQ PO PRN (06:16)
[2020-08-02] MEDS: TESSALON PERLES PO PRN (06:16)
[2020-08-02] MEDS: LOVENOX INJ 30 MG SYR SC SCH (09:03)
[2020-08-02] MEDS: LEVAQUIN PREMIX IV 750 MG 750 MG/150 ML BAG IV SCH (09:03)
[2020-08-02] MEDS: REMDESIVIR 100 MG in NS 250 ML IV 250 ML IV SCH (09:05)
[2020-08-02] MEDS: NS 1/2 1000 ML IV 1,000 ML IV SCH (09:06)
[2020-08-02] MEDS: ROBITUSSIN DM PO SCH (09:06)
[2020-08-02] MEDS: PULMICORT NEB TX 0.5 MG NEB SCH (09:15)
== END 2020-08-02 13:15 | disposition home or self-care (01) | DRG 177 ==
LOC: ICU
PROVIDERS: ADMIT Internal Medicine; ATTEND Internal Medicine